=== PATIENT | female | born 1990 | race Caucasian/White ===

== ENCOUNTER 2020-04-05 04:06 | Outpatient (CLI) | payer SELFPAY ==
[~2020-04-05] VITALS: Ht 160 cm; Wt 60.0 kg
[2020-04-05 04:30] VITALS: BP 111/71
[2020-04-05 04:44] LABS: MICROSCOPIC INDICATED
[2020-04-05 04:49] LABS: AMPHETAMINE SCREEN, URINE Negative (Negative); BARBITURATE SCREEN, URINE Negative (Negative); BENZODIAZEPINE SCREEN, URINE Negative (Negative); CANNABINOID SCREEN, URINE Negative (Negative); COCAINE SCREEN, URINE Negative (Negative); METHADONE SCREEN, URINE Negative (Negative); OPIATE SCREEN, URINE Negative (Negative)
[2020-04-05] MEDS ORDERED: TERBUTALINE 1 MG/ML, 1ML ONE (05:05)
[2020-04-05] MEDS ORDERED: TERBUTALINE 1 MG/ML, 1ML SQ PRN (05:30)
[2020-04-05 05:55] LABS: BASOPHILS % (AUTO) 1 % (0-1); EOSINOPHILS % (AUTO) 1 % (1-7); LYMPHOCYTES % (AUTO) 15 % (22-44); MEAN CORPUSCULAR HEMOGLOBIN 27.5 pg (27.0-34.8); MEAN CORPUSCULAR HGB CONC 34.1 g/dL (32.4-35.8); MEAN PLATELET VOLUME 7.8 fL (7.4-10.4); MONOCYTES % (AUTO) 6 % (2-9); NEUTROPHILS % (AUTO) 78 % (42-75); PLATELET COUNT 284 x10^3/uL (130-400); RED BLOOD COUNT 4.12 x10^6/uL (3.82-5.3); RED CELL DISTRIBUTION WIDTH 13.9 % (9.6-15.2)
[2020-04-05 06:08] LABS: MD NO
== END 2020-04-05 06:44 | disposition home or self-care (01) ==
LOC: LDOP 04:06
PROVIDERS: ATTEND Obstetrics & Gynecology
DX: O26.892 Other specified pregnancy related conditions, second trimester (principal); R10.9 Unspecified abdominal pain; Z3A.25 25 weeks gestation of pregnancy
CPT/HCPCS: 76805; 80307; 81001; 85025; 86592; 86762; 86850; 86900; 87086; 87340; 87806; 99201; G0463; G0475

== ENCOUNTER 2020-04-13 19:37 | Observation (INO) | payer SELFPAY ==
[~2020-04-13] VITALS: Ht 160 cm; Wt 64.0 kg
[2020-04-13 20:31] LABS: MICROSCOPIC INDICATED
[2020-04-13] MEDS ORDERED: TERBUTALINE 1 MG/ML, 1ML ONE (23:19)
[2020-04-13] MEDS ORDERED: TERBUTALINE 1 MG/ML, 1ML SQ ONE (23:30)
== END 2020-04-14 00:37 | disposition home or self-care (01) ==
LOC: LDOP 19:37 → LDIP 21:30
PROVIDERS: ADMIT Obstetrics & Gynecology; ATTEND Obstetrics & Gynecology
DX: O60.02 Preterm labor without delivery, second trimester (principal); O26.892 Other specified pregnancy related conditions, second trimester; R11.0 Nausea; Z3A.26 26 weeks gestation of pregnancy; Z79.899 Other long term (current) drug therapy
CPT/HCPCS: 81001; 87077; 87086; 87491; 87591; 96372; 99211; G0378; J3105; G0463

== ENCOUNTER 2020-06-29 17:41 | Inpatient (IN) | payer OTHER ==
[~2020-06-29] VITALS: Ht 160 cm; Wt 66.8 kg
[2020-06-29] MEDS ORDERED: FENTANYL PF 100 MCG/2ML IV PRN (18:30)
[2020-06-29] MEDS ORDERED: CALCIUM CARBONATE 500 MG TAB.CHEW PO PRN (18:30)
[2020-06-29] MEDS ORDERED: FENTANYL PF 100 MCG/2ML IVPush PRN (18:30)
[2020-06-29] MEDS ORDERED: D5%-LACTATED RINGERS 1,000 ML IV SCH (18:30)
[2020-06-29] MEDS ORDERED: OXYTOCIN 30U/ 0.9% NaCL 500ML 500 ML IV ONE (18:30)
[2020-06-29] MEDS ORDERED: TERBUTALINE 1 MG/ML, 1ML SQ PRN (18:30)
[2020-06-29] MEDS ORDERED: ONDANSETRON 2MG/ML, 2ML IVPush PRN (18:30)
[2020-06-29] MEDS ORDERED: TERBUTALINE 1 MG/ML, 1ML IVPush PRN (18:30)
[2020-06-29 18:58] LABS: MEAN CORPUSCULAR HEMOGLOBIN 23.4 pg (27.0-34.8); MEAN CORPUSCULAR HGB CONC 32.9 g/dL (32.4-35.8); MEAN PLATELET VOLUME 7.8 fL (7.4-10.4); PLATELET COUNT 330 x10^3/uL (130-400); RED BLOOD COUNT 4.77 x10^6/uL (3.82-5.3)
[2020-06-29 19:00] VITALS: BP 120/79
[2020-06-29] MEDS ORDERED: PLEASE ENTER HEIGHT AND WEIGHT MC SCH (19:00)
[2020-06-29 19:05] LABS: MD YES
[2020-06-29 19:22] LABS: LYMPH#(MANUAL) 0.72 x10^3/uL (1-3.4); LYMPHS% (MANUAL) 3 % (22-44); MONOS#(MANUAL) 1.68 x10^3/uL (0.3-2.7); MONOS% (MANUAL) 7 % (2-9); SEGS% (MANUAL) 90 % (42-75)
[2020-06-29 19:23] LABS: <PLATELET ESTIMATE> ADEQUATE; <PLT MORPHOLOGY> NORMAL PLT MORPH; <RBC MORPHOLOGY> NORMAL
[2020-06-29 19:24] VITALS: BP 121/80
[2020-06-29] MEDS ORDERED: OXYTOCIN 30U/ 0.9% NaCL 500ML 500 ML ONE (19:33)
[2020-06-29] MEDS ORDERED: MISOPROSTOL 200 MCG TABLET ONE (19:33)
[2020-06-29] MEDS ORDERED: LIDOCAINE 1%, 20ML ONE (19:33)
[2020-06-29] MEDS ORDERED: OXYTOCIN 10 UNITS/ML, 1ML ONE (19:33)
[2020-06-29] MEDS ORDERED: AMPICILLIN 2 GM in SODIUM CHLORIDE 0.9% 100 ML IVPB STA (19:53)
[2020-06-29] MEDS ORDERED: AMPICILLIN 1 GM in SODIUM CHLORIDE 0.9% 100 ML IVPB SCH (20:00)
[2020-06-29 20:07] LABS: AMPHETAMINE SCREEN, URINE Negative (Negative); BARBITURATE SCREEN, URINE Negative (Negative); BENZODIAZEPINE SCREEN, URINE Negative (Negative); CANNABINOID SCREEN, URINE Negative (Negative); COCAINE SCREEN, URINE Negative (Negative); METHADONE SCREEN, URINE Negative (Negative); OPIATE SCREEN, URINE Negative (Negative)
[2020-06-30] MEDS ORDERED: FENTANYL PF 100 MCG/2ML ONE (00:34)
[2020-06-30] MEDS: LACTATED RINGERS 1,000 ML IV SCH ×2 (00:38→05:55)
[2020-06-30] MEDS ORDERED: LIDOCAINE/PF 1.5% EPI 1:200K, 10 ML ONE (01:40)
[2020-06-30] MEDS ORDERED: FENTANYL/BUPIV./NS/PF 250 ML EPIDCONT ONE (01:40)
[2020-06-30] MEDS ORDERED: FENTANYL/BUPIV./NS/PF 250 ML EPIDCONT SCH (02:30)
[2020-06-30] MEDS ORDERED: LACTATED RINGERS 1,000 ML IV SCH (02:30)
[2020-06-30] MEDS ORDERED: LACTATED RINGERS 1,000 ML IVBOLUS PRN (02:30)
[2020-06-30] MEDS ORDERED: EPHEDRINE 50 MG/ML, 1ML IVPush PRN (02:30)
[2020-06-30] MEDS ORDERED: NALOXONE 0.4 MG/ML, 1ML IVPush PRN (02:30)
[2020-06-30] MEDS ORDERED: OXYTOCIN 30U/ 0.9% NaCL 500ML 500 ML IV PRN (10:00)
[2020-06-30] MEDS ORDERED: PREN1TAB60 PO (10:45)
[2020-06-30] MEDS ORDERED: IBUPROFEN 600 MG TABLET ONE (17:15)
[2020-06-30] MEDS ORDERED: DOCUSATE 100 MG CAPSULE PO PRN (17:30)
[2020-06-30] MEDS ORDERED: SIMETHICONE 80 MG CHEW TAB PO PRN (17:30)
[2020-06-30] MEDS ORDERED: OXYcodone/APAP 5/325MG TABLET PO PRN ×2 (17:30)
[2020-06-30] MEDS ORDERED: MISOPROSTOL 200 MCG TABLET PR PRN (17:30)
[2020-06-30] MEDS: IBUPROFEN 600 MG TABLET PO PRN (17:35)
[2020-06-30] MEDS: OXYTOCIN 30U/ 0.9% NaCL 500ML 500 ML IV SCH (17:36)
[2020-06-30] MEDS ORDERED: OXYTOCIN 30U/ 0.9% NaCL 500ML 500 ML ONE (17:38)
[2020-06-30 20:05] VITALS: BP 110/72
[2020-07-01 00:29] VITALS: BP 106/70
[2020-07-01] MEDS: IBUPROFEN 600 MG TABLET PO PRN ×2 (00:45→13:52)
[2020-07-01 00:57] LABS: BASOPHILS % (AUTO) 1 % (0-1); EOSINOPHILS % (AUTO) 1 % (1-7); LYMPHOCYTES % (AUTO) 9 % (22-44); MEAN CORPUSCULAR HEMOGLOBIN 23.5 pg (27.0-34.8); MEAN CORPUSCULAR HGB CONC 32.5 g/dL (32.4-35.8); MEAN PLATELET VOLUME 7.9 fL (7.4-10.4); MONOCYTES % (AUTO) 6 % (2-9); NEUTROPHILS % (AUTO) 84 % (42-75); PLATELET COUNT 312 x10^3/uL (130-400); RED BLOOD COUNT 4.39 x10^6/uL (3.82-5.3); RED CELL DISTRIBUTION WIDTH 15.8 % (9.6-15.2)
[2020-07-01 01:55] LABS: MD SCAN
[2020-07-01] MEDS: OXYTOCIN 30U/ 0.9% NaCL 500ML 500 ML IV SCH ×3 (03:30→23:30)
[2020-07-01 04:30] VITALS: BP 100/64
[2020-07-01] MEDS: PRENATAL VIT/IRON/FA 1 EACH TABLET PO SCH (07:23)
[2020-07-01 08:03] VITALS: BP 111/70
[2020-07-01 12:02] VITALS: BP 104/71
[2020-07-01 16:30] VITALS: BP 116/79
[2020-07-01 20:15] VITALS: BP 114/75
[2020-07-02] MEDS: IBUPROFEN 600 MG TABLET PO PRN (07:35)
[2020-07-02] MEDS: PRENATAL VIT/IRON/FA 1 EACH TABLET PO SCH (07:35)
== END 2020-07-02 11:00 | disposition home or self-care (01) | DRG 807 ==
LOC: LDOP 17:41 → LDIP 18:14 → 2NW 06-30 19:45
PROVIDERS: ADMIT Obstetrics & Gynecology; ATTEND Obstetrics & Gynecology
PROC: 10E0XZZ Delivery of Products of Conception, External Approach (ICD-10-PCS; principal; 2020-06-30)
PROC: 3E0R3BZ Introduction of Anesthetic Agent into Spinal Canal, Percutaneous Approach (ICD-10-PCS; 2020-06-30)
PROC: 00HU33Z Insertion of Infusion Device into Spinal Canal, Percutaneous Approach (ICD-10-PCS; 2020-06-30)
DX: O77.0 Labor and delivery complicated by meconium in amniotic fluid (principal); Z37.0 Single live birth; O69.81X0 Labor and delivery complicated by cord around neck, without compression, not applicable or unspecified; Z20.822 Contact with and (suspected) exposure to COVID-19; O70.0 First degree perineal laceration during delivery; Z53.20 Procedure and treatment not carried out because of patient's decision for unspecified reasons; Z3A.37 37 weeks gestation of pregnancy
CPT/HCPCS: 36415; 80307; 85025; 86592; 86850; 86900; 87635; G0378; J3010; J2590; J7120